=== PATIENT | male | born 1955 | race Caucasian/White ===

== ENCOUNTER 2017-06-13 14:28 | Outpatient (CLI) | payer BC ==
[~2017-06-13] VITALS: Ht 177.8 cm; Wt 111.6 kg
[2017-06-13 14:49] VITALS: BP 133/69
== END 2017-06-13 15:03 ==
LOC: PREOP 14:28
PROVIDERS: ATTEND Podiatrist Foot & Ankle Surgery
DX: Z01.818 Encounter for other preprocedural examination (principal); Z11.2 Encounter for screening for other bacterial diseases; M20.11 Hallux valgus (acquired), right foot
CPT/HCPCS: 87081

== ENCOUNTER 2017-07-02 07:22 | Day surgery (SDC) | payer BC ==
[~2017-07-02] VITALS: Ht 177.8 cm; Wt 111.6 kg
[2017-07-02] MEDS ORDERED: NS (IVPB) 50 ML ONE (07:47)
[2017-07-02] MEDS ORDERED: ceFAZolin 1,000 MG (ANCEF) VIAL ONE (07:47)
--- NOTE | 2017-07-02 07:49 | Progress Note-Pre Operative ---
Pre-Operative Progress Note H&P Reviewed The H&P was reviewed, patient examined and no changes noted. Date Seen by Provider: Jul 02, 2017 Time Seen by Provider: 07:49 Date H&P Reviewed: Jul 02, 2017 Time H&P Reviewed: 07:49 Pre-Operative Diagnosis: Soft tissue lesion left foot RIKY HUTTON DPM Jul 02, 2017 7:49 am
[2017-07-02] MEDS ORDERED: ONDANSETRON 4 MG/2 ML (SDV) Z0FRAN ONE (07:58)
[2017-07-02] MEDS ORDERED: FAMOTIDINE 20MG/2ML IV (PEPCID) ONE (07:58)
[2017-07-02] MEDS ORDERED: LACTATED RINGERS 1,000 ML IV PRN ×2 (08:04→08:30)
[2017-07-02 08:15] VITALS: BP 117/67
[2017-07-02] MEDS ORDERED: ceFAZolin INJECTION 1,000 MG in D5W 50 ML IVPB SOLUTION 50 ML IV ONE (08:15)
[2017-07-02] MEDS ORDERED: ONDANSETRON 4 MG/2 ML (SDV) Z0FRAN IV ONE (08:30)
[2017-07-02] MEDS ORDERED: FAMOTIDINE 20MG/2ML IV (PEPCID) IV ONE (08:30)
[2017-07-02] MEDS ORDERED: LIDOCAINE PF 2% 5 ML (XYLOCAINE) VIAL ONE (08:35)
[2017-07-02] MEDS ORDERED: proPOfol 200 MG/20 ML (DIPRIVAN) VIAL IV ONE (08:35)
[2017-07-02] MEDS ORDERED: MIDAZOLAM 2 MG/2 ML (VERSED) VIAL ONE (08:35)
[2017-07-02] MEDS ORDERED: fentaNYL INJECTION 100 MCG/2 ML AMP ONE (08:35)
[2017-07-02] MEDS ORDERED: DEXAMETHASONE 10 MG/ML (DECADRON) 1 ML VIAL ONE ×2 (08:38→09:43)
[2017-07-02] MEDS ORDERED: LIDOCAINE 1% INJ 20 ML (XYLOCAINE) VIAL ONE (09:04)
[2017-07-02] MEDS ORDERED: BUPIVACAINE 0.5% 30 ML (SENSORCAINE) VIAL ONE (09:04)
[2017-07-02] MEDS: ceFAZolin 1 GM/NS 50 ML IVPB IV ONE ×4 (09:18→10:18)
--- NOTE | 2017-07-02 09:18 | Progress Note-Pre Operative ---
Pre-Operative Progress Note H&P Reviewed The H&P was reviewed, patient examined and no changes noted. Date Seen by Provider: Jul 02, 2017 Time Seen by Provider: :17 Date H&P Reviewed: Jul 02, 2017 Time H&P Reviewed: :17 Pre-Operative Diagnosis: Hallux Valgus, Hallux Rigidus, right foot RIKY HUTTON DPM Jul 02, 2017 9:18 am
[2017-07-02] MEDS ORDERED: SEVOFLURANE (ULTANE) 15 ML INHAL SOLN ONE (10:22)
--- NOTE | 2017-07-02 10:38 | Progress Note-Post Operative ---
Post-Operative Progess Note Surgeon (s)/Clipman (s) Surgeon RIKY HUTTON DPM Clipman: none Pre-Operative Diagnosis Hallux Valgus, Hallux Rigidus, right foot Post-Operative Diagnosis Same Procedure & Operative Findings Date of Procedure 07/02/17 Procedure Performed/Findings Modified Tony-Florentino Bunionectomy right Anesthesia Type General Estimated Blood Loss Estimated blood loss (mL): Minimal Specimens/Packing Specimens Removed None RIKY HUTTON DPM Jul 02, 2017 10:38 am
[2017-07-02] MEDS ORDERED: LACTATED RINGERS 1,000 ML IV SCH (10:39)
[2017-07-02] MEDS ORDERED: morphine INJ 10 MG/ML 1ML (SYR OR VIAL) IVP PRN (10:45)
[2017-07-02] MEDS ORDERED: HYDROcodone/APAP 5 MG/325 MG (LORTAB) TAB PO PRN (10:45)
[2017-07-02] MEDS ORDERED: ONDANSETRON 4 MG/2 ML (SDV) Z0FRAN IVP PRN (10:45)
[2017-07-02] MEDS ORDERED: CEPH500C PO (10:50)
[2017-07-02] MEDS ORDERED: ACHD5005 PO (10:50)
[2017-07-02 11:35] VITALS: BP 123/70
[2017-07-02 12:05] VITALS: BP 116/65
--- NOTE | 2017-07-02 12:33 | Diagnostic Imaging Report ---
INDICATION: Status post right foot bunionectomy. TIME OF EXAM: 10:46 a.m. FINDINGS: Two views of the right foot were obtained. Postsurgical changes of bunionectomy are noted. There is an osteotomy of the proximal phalanx of the great toe. K-wire extends through the distal aspect of the first metatarsal. Alignment is normal. IMPRESSION: Satisfactory postop changes to the right foot. Dictated by: Dictated on workstation # [id number]
[2017-07-02 12:35] VITALS: BP 121/72
[2017-07-02 13:02] VITALS: BP 121/72
--- NOTE | 2017-07-02 13:05 | Physical Therapy Ortho Eval ---
PT Orthopedic Evaluation Type of Surgery right bunionectomy Prior Level of Function Current Living Status: Spouse Locomotion (Upon Admit): Independent Established Durable Medical Eq: Crutches Subjective Subjective Patient c/o nausea. Entry Into Home: Stairs With Railing Steps Into Home: 3 Steps Accessories: Railing Present Objective Objective Fair balance with crutches Motor Control Motor Control: Motor Control WNL ROM ROM: WFL, except focal deficit Strength Strength: WFL Transfer Transfers (B, C, W/C) (FIM): 6 Gait Gait Assistive Device: Crutches Right Lower Extremity: Right Weight Bearing Status RLE: Non Weight Bearing Left Lower Extremity: Left Weight Bearing Status LLE: Full Weight Bearing Gait (FIM): 4 Distance (FIM): 3=150 ft Distance: 150' Gait Level of Assist: 4 Summary/Comments Education with patient on NWB right LE and to decrease speed with mobility for safety Treatment Rendered Treatment: Gait Train, Step Train (ascended and descended 2 steps) Assessment/Goals Goal Time Frame: 1 Visit Safe Ambulation: Yes Plan Treatment Plan: Discharge Treatment Duration: eval Visits Per Week: eval PT/Family Agrees to Plan: Yes Time Time In: 1235 Time Out: 1250 Total Billed Treatment Time: 15 Billed Treatment Time 1 visit EVModC 15 min No ALISON BOYER PT Jul 02, 2017 13:05
--- NOTE | 2017-07-02 17:35 | OPERATIVE REPORT ---
DATE OF SERVICE: 07/02/2017 SURGEON: Riky Hutton DPM PREOPERATIVE DIAGNOSIS: Hallux abductovalgus metatarsal primus varus, right. POSTOPERATIVE DIAGNOSIS: Hallux abductovalgus metatarsal primus varus, right with degenerative joint disease, right first metatarsophalangeal joint. PROCEDURE: Modified Tony-Florentino bunionectomy, right foot. WOUND CLASS: Clean. ANESTHESIA: General. HEMOSTASIS: Pneumatic thigh tourniquet at 250 mmHg. INDICATIONS: This 61-year-old male presents complaining of painful bunion of the right foot. Conservative therapy has met with unsatisfactory results and the patient was agreeable to surgical intervention after risks and complications were discussed at length. No guarantees were extended to the patient and he is willing to proceed. DESCRIPTION OF PROCEDURE: The patient was brought back to the operating table, placed in secure supine position. General anesthetic was then induced. Appropriate timeout was performed. The right foot was then prepped and draped in normal sterile manner. The right foot was then elevated, allowed to exsanguinate after which the tourniquet was inflated to 250 mmHg. Local anesthetic of 0.5% Marcaine was injected. A 7 mL was used in total preoperatively and an additional 10 mL at the end of the procedure. The incision consisted of a 6 cm longitudinal linear incision to the dorsal aspect of the first metatarsophalangeal joint. The incision was deepened in the same plane with great care to identify and retract all vital neurovascular structures. All the necessary blood vessels were cauterized as encountered. The incision was deepened down to the capsule where a longitudinal capsulotomy was performed. This exposed the hypertrophic medial eminence of the first metatarsal head, which was resected utilizing a power sagittal saw. Blunt dissection was carried out into the first intermetatarsal space where a lateral release was performed. The conjoint tendon of the adductor hallucis was released as well as the lateral capsule. The fibular sesamoidal ligament was also released. The hallux was then forcibly adducted releasing additional fibers holding it in its abnormal position. A power sagittal saw was utilized to create a Chevron-type osteotomy to the surgical neck of the right first metatarsal head. Once the Chevron procedure was cut from medial to lateral, a second cut was created at the dorsal aspect of the Chevron with cutting a second piece of bone of approximately 1 mm of width at the medial most aspect tapering down to nothing on the lateral. This allowed for some minor decompression of the joint as well as correction of the proximal articular set angle. Excellent bony apposition and fixation was achieved with a 0.062 threaded K-wire driven from proximal dorsal to plantar distal across the osteotomy with great care not to penetrate the articular cartilage. The K-wire was cut flush with the dorsal aspect of the first metatarsal. The wound was flushed once again, after which attention was then directed to the dorsal aspect of the first metatarsal where a dorsal eminence was reduced utilizing a power sagittal saw and power guilherme. Inspection of the grooves of the sesamoid plantar aspect of the first metatarsal head demonstrates some full thickness degeneration of the articular cartilage in an area of approximately 3 x 3 mm. Attention was then directed to the diaphysis of the proximal phalanx of the right hallux. Subperiosteal dissection was carried out after which a wedge of bone was resected with power sagittal saw with the base medial and the lateral cortices held intact. Two commercial drone pilot holes were created to the dorsal medial aspect of the osteotomy after the wedge of bone was resected, the commercial drone pilot hole was used for fixation purposes. A 28-gauge monofilament wire was passed through the commercial drone pilot hole securing the osteotomy in a closed position after the wound was flushed with copious amounts of normal saline. Excellent bony apposition and fixation was appreciated at this time. The hallux was then placed through its range of motion at the metatarsophalangeal joint and found to be excellent smooth range of motion with approximately 60 degrees of dorsiflexion. The wound was flushed with copious amounts of normal saline and closure was then performed in layers. Deep closure was performed with 3-0 Vicryl, superficial with 4-0 Vicryl, skin closed with 4-0 Prolene in a horizontal mattress type stitch. Postoperative injection consisted of the aforementioned Marcaine with 10 mg of dexamethasone into the first intermetatarsal space. Postoperative dressing consisted of Betadine soaked Adaptic, sterile 4 x 4, sterile Kerlix, all secured with a Coban wrap. The tourniquet of course was released and appropriate cap refill time was noted to all digits of the right foot. The patient was transferred from the operating room to the recovery area with vital signs stable. Postoperative instructions were given to the patient to be nonweightbearing on the right foot. He was given a prescription for Keflex as well as Vicodin postoperatively. Job ID: [id number] DocumentID: [id number] Dictated Date: 07/02/2017 10:47:57 Oncology Rep Specialist Date: 07/02/2017 17:35:09 Dictated By: RIKY HUTTON DPM
== END 2017-07-02 13:02 | disposition home or self-care (01) ==
LOC: SDC 07:22
PROVIDERS: ATTEND Podiatrist Foot & Ankle Surgery
DX: M20.11 Hallux valgus (acquired), right foot (principal); M19.071 Primary osteoarthritis, right ankle and foot
CPT/HCPCS: 73620